=== PATIENT | male | born 1985 ===

== ENCOUNTER 2019-01-25 15:51 | Emergency (ER) | payer OTHER ==
[2019-01-25 16:08] VITALS: BP 132/79
--- NOTE | 2019-01-25 16:20 | UC ---
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 no visual complaints no photophobia no FB sensation occurred days ago - History of Current Complaint Chief Complaint: UCEye Stated Complaint: EYE COMPLAINT Time Seen by Provider: 01/25/19 15:58 Hx Obtained From: Patient Onset/Duration: Gradual Onset, Lasting Days Timing: Constant Severity Initially: Mild Severity Currently: Mild Pain Intensity: 0 Pain Scale Used: 0-10 Numeric Location of Injury: Conjunctiva Aggravating Factor(s): Nothing Alleviating Factor(s): Nothing Associated Signs And Symptoms: Positive: Drainage (Clear) - some tearing and pruritis - Allergies/Home Medications Allergies/Adverse Reactions: Allergies Allergy/AdvReac Type Severity Reaction Status Date / Time No Known Allergies Allergy Verified 01/25/19 16:08 Home Medications: Home Medications NK [No Home Medications Reported] 01/25/19 [History Confirmed 01/25/19] PMH/Surg Hx/FS Hx/Imm Hx Previously Healthy: Yes - Surgical History Surgical History: Yes Surgery Procedure, Year, and Place: left ankle. lump removed behind ear - Family History Known Family History: Negative: Cardiac Disease, Hypertension, Diabetes - Social History Alcohol Use: Weekly Substance Use Type: None Smoking Status (MU): Never Smoked Tobacco Review of Systems All Other Systems Reviewed And Are Negative: Yes Constitutional: Positive: Negative Skin: Positive: Negative Eyes: Positive: Other - itching /irritation of both eyes ENT: Positive: Negative Respiratory: Positive: Negative Cardiovascular: Positive: Negative Gastrointestinal: Positive: Negative Genitourinary: Positive: Negative Motor: Positive: Negative Neurovascular: Positive: Negative Musculoskeletal: Positive: Negative Neurological: Positive: Negative Psychological: Positive: Negative Physical Exam Triage Information Reviewed: Yes Appearance: Well-Appearing, No Pain Distress, Well-Nourished Vital Signs: Initial Vital Signs Temp 98.5 F 01/25/19 16:05 Pulse 63 01/25/19 16:05 Resp 14 01/25/19 16:05 BP 132/79 01/25/19 16:05 Pulse Ox 98 01/25/19 16:05 Vital Signs Reviewed: Yes Eyes: Positive: Conjunctiva Inflamed, Other: - eomi/perrl. Negative: Discharge ENT: Positive: Hearing grossly normal. Negative: Nasal congestion, Nasal drainage, Trismus, Muffled voice, Hoarse voice Dental Exam: Normal Neck: Positive: Supple, Nontender Respiratory: Positive: Lungs clear, Normal breath sounds, No respiratory distress Cardiovascular: Positive: RRR, No Murmur Abdomen Description: Positive: Nontender Musculoskeletal: Positive: ROM Intact, No Edema Neurological: Positive: Alert Psychological Exam: Normal Skin Exam: Normal Eye Complaint Course/Dx - Differential Dx/Diagnosis Provider Diagnosis: Irritation of both eyes Discharge - Sign-Out/Discharge Documenting (check all that apply): Patient Departure All imaging exams completed and their final reports reviewed: No Studies - Discharge Plan Condition: Stable Disposition: HOME Referrals: Brandt Gomes MD [Medical Doctor] - 2 Days Additional Instructions: I suggest you use ZADITOR eye drops (OTC) if this doen't help I suggest you see an eye doctor - Billing Disposition and Condition Condition: STABLE Disposition: Home
== END 2019-01-25 16:27 | disposition home or self-care (01) ==
LOC: UCEAST 15:51
DX: H57.89 Other specified disorders of eye and adnexa (principal)
CPT/HCPCS: 99201; G0463

== ENCOUNTER 2019-11-25 16:29 | Emergency (ER) | payer BC, OTHER ==
[2019-11-25 16:42] VITALS: BP 108/64
--- NOTE | 2019-11-25 16:56 | UC ---
FLU HPI - HPI Summary HPI Summary: 34 yo male presents with sore throat. He tells me that for the last 3 days he has had a sore throat and fever. Has been taking ibuprofen with good relief, but symptoms return when it wears off. His son was recently dx'd with an ear infection (7 month old). Pt is eating, drinking, and tolerating po well, but does hurt to swallow. Denies sinus symptoms, cough, rash, abdominal pain, n/v. Last dose of ibuprofen was 20min [employer] - History of Current Complaint Chief Complaint: UCRespiratory Stated Complaint: FEVER,SORE THROAT Time Seen by Provider: 11/25/19 16:48 Hx Obtained From: Patient Onset/Duration: Sudden Onset Severity Currently: Moderate Severity Initially: Moderate Pain Intensity: 5 Pain Scale Used: 0-10 Numeric - Allergy/Home Medications Allergies/Adverse Reactions: Allergies Allergy/AdvReac Type Severity Reaction Status Date / Time No Known Allergies Allergy Verified 11/25/19 16:42 Home Medications: Home Medications Amoxicillin/Clavulanate TAB* [Augmentin TAB 875*] 875 mg PO BID #20 tab [Rx] Ibuprofen TAB* [Motrin TAB* 400 MG] 400 mg PO Q6HR 11/25/19 [History Confirmed 11/25/19] PMH/Surg Hx/FS Hx/Imm Hx - Additional Past Medical History Additional PMH: None - Surgical History Surgical History: Yes Surgery Procedure, Year, and Place: left ankle. lump removed behind ear - Family History Known Family History: Negative: Cardiac Disease, Hypertension, Diabetes - Social History Occupation: Employed Full-time Lives: With Family Alcohol Use: Weekly Alcohol Amount: once Substance Use Type: None Smoking Status (MU): Never Smoked Tobacco Review of Systems All Other Systems Reviewed And Are Negative: No Constitutional: Positive: Fever Skin: Positive: Negative Eyes: Positive: Negative ENT: Positive: Sore Throat Respiratory: Positive: Negative Cardiovascular: Positive: Negative Gastrointestinal: Positive: Negative Neurovascular: Positive: Negative Neurological/Mental Status: Positive: Negative Psychological: Positive: Negative Physical Exam - Summary Physical Exam Summary: GENERAL: NAD. WDWN. No pain distress. SKIN: No rashes, sores, lesions, or open wounds. HEENT: Head: AT/NC Eyes: Conjunctiva clear without inflammation or discharge. Ears: Hearing grossly normal. TMs intact, no bulging, erythema, or edema. Nose: Nasal mucosa pink and moist. NTTP maxillary and frontal sinus. Throat: Posterior oropharynx mild erythema and 2+ tonsillar enlargement. Moderate white exudates. Uvula midline. No hoarse voice or muffled voice. NECK: Supple. Moderate tonsillar LAD mild ttp CHEST: CTAB. No r/r/w. No accessory muscle use. Breathing comfortably and in no distress. CV: RRR. Pulses intact. Cap refill <2seconds NEURO: Alert. PSYCH: Age appropriate behavior. Triage Information Reviewed: Yes Vital Signs: Initial Vital Signs Temp 102.2 F 11/25/19 16:38 Pulse 86 11/25/19 16:38 Resp 14 11/25/19 16:38 BP 108/64 11/25/19 16:38 Pulse Ox 98 11/25/19 16:38 Laboratory Tests 11/25/19 11/25/19 16:53 16:57 Influenza A (Rapid) Negative Influenza B (Rapid) Negative Group A Strep Rapid Negative Vital Signs Reviewed: Yes Flu Course/Dx - Course Course Of Treatment: POC flu and strep negative. Will send for full throat culture and treat with augmentin at this time. - Differential Dx/Diagnosis Provider Diagnosis: Pharyngitis Discharge ED - Sign-Out/Discharge Documenting (check all that apply): Patient Departure All imaging exams completed and their final reports reviewed: No Studies - Discharge Plan Condition: Stable Disposition: HOME Prescriptions: Amoxicillin/Clavulanate TAB* [Augmentin TAB 875*] 875 mg PO BID #20 tab Patient Education Materials: Pharyngitis (ED) Referrals: No Primary Care Phys,NOPCP [Primary Care Provider] - Additional Instructions: If you develop a fever, shortness of breath, chest pain, new or worsening symptoms - please call your PCP or go to the ED immediately. Your strep test was negative today, but your history, symptoms, and exam are consistent with strep throat - therefore you are being treated for this today. - Billing Disposition and Condition Condition: STABLE Disposition: Home
[2019-11-25 17:05] LABS: Influenza A Molecular Negative (Negative); Influenza B Molecular Negative (Negative)
--- NOTE | 2019-11-27 16:50 | UC ---
- Progress Note Progress Note: Throat cultures + for parainflenzae virus, supportive care but should have close follow up if symptoms do not improve. Please call to make sure he is improving, can stop ABX. -Rachel Chung PAC Course/Dx - Diagnoses Provider Diagnoses: Pharyngitis Discharge ED - Sign-Out/Discharge Documenting (check all that apply): Patient Departure All imaging exams completed and their final reports reviewed: No Studies - Discharge Plan Condition: Stable Disposition: HOME Prescriptions: Amoxicillin/Clavulanate TAB* [Augmentin TAB 875*] 875 mg PO BID #20 tab Patient Education Materials: Pharyngitis (ED) Referrals: No Primary Care Phys,NOPCP [Primary Care Provider] - Additional Instructions: If you develop a fever, shortness of breath, chest pain, new or worsening symptoms - please call your PCP or go to the ED immediately. Your strep test was negative today, but your history, symptoms, and exam are consistent with strep throat - therefore you are being treated for this today. - Billing Disposition and Condition Condition: STABLE Disposition: Home
== END 2019-11-25 17:16 | disposition home or self-care (01) ==
LOC: UCEAST 16:29
DX: J02.9 Acute pharyngitis, unspecified (principal)
CPT/HCPCS: 87070; 87077; 87651; 99212; G0463